=== PATIENT | female | born 1950 | race Caucasian/White ===

== ENCOUNTER 2021-07-10 09:51 | Inpatient (IN) ==
[2021-07-10] MEDS: carBAMazepine 200 MG TABLET PO SCH (20:29)
[2021-07-10] MEDS: lisinopriL 20 MG TABLET PO SCH (20:29)
[2021-07-11 04:29] LABS: Basophils % 0.5 %; Eosinophils # 0.2 K/mcL (0.0-0.6); Eosinophils % 2.5 %; Hematocrit 37.4 % (35.3-44.9); Hemoglobin 12.5 g/dL (11.5-15.4); Immature Granulocytes % 0.3 % (0-4); Lymphocytes # 1.2 K/mcL (0.6-4.6); Lymphocytes % 20.4 %; Mean Corpuscular HGB Conc 33.4 g/dL (31.6-35.5); Mean Corpuscular Hemoglobin 32.7 pg (28.0-33.3); Mean Corpuscular Volume 97.9 fL (83.0-100.0); Mean Platelet Volume 9.9 fL (9.4-12.4); Monocytes # 0.5 K/mcL (0.0-1.3); Monocytes % 8.4 %; Neutrophils # 4.1 K/mcL (1.6-8.9); Platelet Count 189 K/mcL (140-400); Red Blood Count 3.82 M/mcL (3.82-4.97); Red Cell Distribution Width 12.1 % (11.5-14.5); Segmented Neutrophils % 67.9 %
[2021-07-11 04:44] LABS: BUN/Creatinine Ratio 21 (6-26); Blood Urea Nitrogen 13 mg/dL (8-23); Calcium 8.3 mg/dL (8.6-10.3); Carbon Dioxide 30 mEq/L (23-29); Chloride 98 mEq/L (98-107); Glucose 107 mg/dL (70-105); Osmolality,Calculated 277 (280-300); Potassium 4.3 mEq/L (3.5-5.1); Sodium 133 mEq/L (136-145); eGFR For African Americans > 60 (> 60); eGFR For Non-African Americans > 60 (> 60)
[2021-07-11] MEDS: *HR* Enoxaparin 40 MG/0.4 ML SYRINGE SQ SCH (06:05)
[2021-07-11] MEDS: carBAMazepine 200 MG TABLET PO SCH ×3 (08:35→19:23)
[2021-07-11] MEDS: amLODIPine 5 MG TABLET PO SCH (08:36)
[2021-07-11] MEDS: lisinopriL 20 MG TABLET PO SCH ×2 (08:36→19:23)
[2021-07-11] MEDS: Multivit/Ca/Min/Fe/FA 1 TAB TABLET PO SCH (08:36)
[2021-07-11] MEDS ORDERED: Cyanocobalamin (B-12) 1,000 MCG/ML VIAL IM SCH ×2 (09:00→14:30)
[2021-07-11] MEDS: Cyanocobalamin (B-12) 1,000 MCG TABLET PO SCH (14:35)
[2021-07-12] MEDS: *HR* Enoxaparin 40 MG/0.4 ML SYRINGE SQ SCH (05:41)
[2021-07-12] MEDS: amLODIPine 5 MG TABLET PO SCH (06:48)
[2021-07-12] MEDS: lisinopriL 20 MG TABLET PO SCH ×2 (06:48→21:42)
[2021-07-12] MEDS: carBAMazepine 200 MG TABLET PO SCH ×3 (09:33→21:42)
[2021-07-12] MEDS: Multivit/Ca/Min/Fe/FA 1 TAB TABLET PO SCH (09:35)
[2021-07-12] MEDS: Cyanocobalamin (B-12) 1,000 MCG TABLET PO SCH (13:53)
[2021-07-13] MEDS: *HR* Enoxaparin 40 MG/0.4 ML SYRINGE SQ SCH (06:05)
[2021-07-13] MEDS: amLODIPine 5 MG TABLET PO SCH (07:43)
[2021-07-13] MEDS: lisinopriL 20 MG TABLET PO SCH ×2 (07:43→20:48)
[2021-07-13] MEDS: carBAMazepine 200 MG TABLET PO SCH ×3 (07:43→20:48)
[2021-07-13] MEDS: Multivit/Ca/Min/Fe/FA 1 TAB TABLET PO SCH (07:43)
[2021-07-13] MEDS: Cyanocobalamin (B-12) 1,000 MCG TABLET PO SCH (12:20)
[2021-07-14] MEDS: *HR* Enoxaparin 40 MG/0.4 ML SYRINGE SQ SCH (05:29)
[2021-07-14 06:08] LABS: Hematocrit 35.9 % (35.3-44.9); Hemoglobin 12.3 g/dL (11.5-15.4); Mean Corpuscular HGB Conc 34.3 g/dL (31.6-35.5); Mean Corpuscular Hemoglobin 32.9 pg (28.0-33.3); Mean Platelet Volume 10.3 fL (9.4-12.4); Platelet Count 185 K/mcL (140-400); Red Blood Count 3.74 M/mcL (3.82-4.97); Red Cell Distribution Width 11.9 % (11.5-14.5); White Blood Count 5.2 K/mcL (4.3-11.1)
[2021-07-14] MEDS: Multivit/Ca/Min/Fe/FA 1 TAB TABLET PO SCH (08:13)
[2021-07-14] MEDS: lisinopriL 20 MG TABLET PO SCH ×2 (08:14→20:14)
[2021-07-14] MEDS: amLODIPine 5 MG TABLET PO SCH (08:15)
[2021-07-14] MEDS: carBAMazepine 200 MG TABLET PO SCH ×3 (08:16→20:13)
[2021-07-14 09:25] LABS: Alanine Aminotransferase 23 Units/L (7-52); Albumin 3.4 g/dL (3.5-5.7); Albumin/Globulin Ratio 1.5 (1.1-2.2); Alkaline Phosphatase 63 Units/L (34-104); Aspartate Amino Transferase 22 Units/L (13-39); BUN/Creatinine Ratio 17 (6-26); Bilirubin,Total 0.4 mg/dL (0.3-1.0); Blood Urea Nitrogen 9 mg/dL (8-23); Carbon Dioxide 26 mEq/L (23-29); Chloride 96 mEq/L (98-107); Globulin 2.3 g/dL (2.4-3.5); Glucose 87 mg/dL (70-105); Magnesium 2.1 mg/dL (1.6-2.6); Osmolality,Calculated 268 (280-300); Potassium 3.9 mEq/L (3.5-5.1); Sodium 130 mEq/L (136-145); Total Protein 5.7 g/dL (6.4-8.9); eGFR For African Americans > 60 (> 60); eGFR For Non-African Americans > 60 (> 60)
[2021-07-14] MEDS: Cyanocobalamin (B-12) 1,000 MCG TABLET PO SCH (11:50)
[2021-07-15] MEDS: *HR* Enoxaparin 40 MG/0.4 ML SYRINGE SQ SCH (05:40)
[2021-07-15] MEDS: amLODIPine 5 MG TABLET PO SCH (08:28)
[2021-07-15] MEDS: carBAMazepine 200 MG TABLET PO SCH ×3 (08:28→21:00)
[2021-07-15] MEDS: Multivit/Ca/Min/Fe/FA 1 TAB TABLET PO SCH (08:28)
[2021-07-15] MEDS: lisinopriL 20 MG TABLET PO SCH ×2 (08:28→21:00)
[2021-07-15] MEDS: Cyanocobalamin (B-12) 1,000 MCG TABLET PO SCH (13:37)
[2021-07-16] MEDS: *HR* Enoxaparin 40 MG/0.4 ML SYRINGE SQ SCH (05:18)
[2021-07-16] MEDS: carBAMazepine 200 MG TABLET PO SCH ×3 (08:11→19:52)
[2021-07-16] MEDS: lisinopriL 20 MG TABLET PO SCH ×2 (08:12→19:52)
[2021-07-16] MEDS: amLODIPine 5 MG TABLET PO SCH (08:12)
[2021-07-16] MEDS: Multivit/Ca/Min/Fe/FA 1 TAB TABLET PO SCH (08:12)
[2021-07-16] MEDS: Cyanocobalamin (B-12) 1,000 MCG TABLET PO SCH (12:55)
[2021-07-17] MEDS: *HR* Enoxaparin 40 MG/0.4 ML SYRINGE SQ SCH (05:03)
[2021-07-17] MEDS: Multivit/Ca/Min/Fe/FA 1 TAB TABLET PO SCH (08:10)
[2021-07-17] MEDS: carBAMazepine 200 MG TABLET PO SCH ×3 (08:10→20:11)
[2021-07-17] MEDS: lisinopriL 20 MG TABLET PO SCH ×2 (08:10→20:11)
[2021-07-17] MEDS: amLODIPine 5 MG TABLET PO SCH (08:10)
[2021-07-17] MEDS: Cyanocobalamin (B-12) 1,000 MCG TABLET PO SCH (11:22)
[2021-07-18] MEDS: *HR* Enoxaparin 40 MG/0.4 ML SYRINGE SQ SCH (05:25)
[2021-07-18] MEDS: lisinopriL 20 MG TABLET PO SCH ×2 (09:11→20:15)
[2021-07-18] MEDS: amLODIPine 5 MG TABLET PO SCH (09:12)
[2021-07-18] MEDS: carBAMazepine 200 MG TABLET PO SCH ×3 (09:12→20:16)
[2021-07-18] MEDS: Multivit/Ca/Min/Fe/FA 1 TAB TABLET PO SCH (09:12)
[2021-07-18] MEDS: Cyanocobalamin (B-12) 1,000 MCG TABLET PO SCH (12:04)
[2021-07-19] MEDS: *HR* Enoxaparin 40 MG/0.4 ML SYRINGE SQ SCH (06:30)
[2021-07-19 07:06] VITALS: BP 172/92; PULSE 92; RESP 17; TEMP 97.7; O2SAT 95
[2021-07-19] MEDS: lisinopriL 20 MG TABLET PO SCH (08:50)
[2021-07-19] MEDS: Multivit/Ca/Min/Fe/FA 1 TAB TABLET PO SCH (08:51)
[2021-07-19] MEDS: amLODIPine 5 MG TABLET PO SCH (08:51)
[2021-07-19] MEDS: carBAMazepine 200 MG TABLET PO SCH ×2 (08:52→11:57)
[2021-07-19] MEDS: Cyanocobalamin (B-12) 1,000 MCG TABLET PO SCH (11:57)
== END 2021-07-19 13:44 | disposition home health service (06) | DRG 65 ==
LOC: INPGRE 16:25
PROVIDERS: ADMIT Family Medicine; ATTEND Family Medicine